=== PATIENT | female | born 1965 | race Asian ===

== ENCOUNTER 2020-12-26 12:05 | Outpatient (CLI) | payer BC, SELFPAY ==
--- NOTE | ~2020-12-26 | XR_ITS ---
EXAMINATION: XR abdomen/kub 1V EXAM DATE: 12/26/2020 12:23 INDICATION: R14.0 - Abdominal distension. Diarrhea. Dizziness. TECHNIQUE: Frontal projection of the upper abdomen, frontal projection lower abdomen/pelvis for inter pretation. There is no prior study for comparison. FINDINGS: There is moderate amount of colonic stool. No small bowel dilation, nonobstructive bowel gas pattern. There are no suspicious calcifications identified. There is no organomegaly suspecte d. There are mild bony degenerative changes. IMPRESSION: Moderate amount of colonic stool. Reviewed, dictated and finalized at location A. [employer]
== END 2020-12-26 12:06 | disposition home or self-care (01) ==
PROVIDERS: PCP Family Medicine; Visit Provider Family Medicine
DX: R14.0 Abdominal distension (gaseous) (principal)
CPT/HCPCS: 74018

== ENCOUNTER → 2021-05-18 09:39 | Outpatient (CLI) | payer BC, SELFPAY ==
--- NOTE | ~2021-05-18 | XR_ITS ---
EXAMINATION: XR knee RT 3V DATE: 05/18/2021 09:55 INDICATION: Right knee pain TECHNIQUE: Three views of the right knee were obtained. COMPARISON: None. FINDINGS: Alignment is normal. No fracture or osteochondral lesion. Joint spaces are normal with no e rosions. There is a joint effusion. Soft tissues are unremarkable. IMPRESSION: 1. Small knee joint effusion without acute osseous abnormality. Reviewed, dictated and finalized at location B.
== END ==
PROVIDERS: PCP Family Medicine; Visit Provider Family Medicine
DX: M25.561 Pain in right knee (principal); M25.461 Effusion, right knee
CPT/HCPCS: 73562

== ENCOUNTER → 2021-06-04 13:49 | Outpatient (CLI) | payer BC, SELFPAY ==
--- NOTE | ~2021-06-04 | MM_ITS ---
EXAMINATION: MM screening [facility] BI w [facility] HISTORY: Screening TECHNIQUE: Craniocaudal and mediolateral oblique 3-D tomosynthesis images were obtained and synthetic 2-D images were generated. CAD analysis was submitted and interpreted. COMPARISON: Comparison to multiple prior studies sequentially, with oldest reviewed study dated 07/29. BREAST PARENCHYMAL COMPOSITION: There are scattered areas of fibroglandular density. FINDINGS: There is no evidence of suspicious mass, calcification, or architectural distortion to sugg est malignancy in either breast. There has been no suspicious interval change. IMPRESSION: 1. No mammographic evidence of malignancy. 2. Recommend routine screening mammography in one year. BI-RADS Category 1: Negative Reviewed, dictated and finalized at location A.
--- NOTE | ~2021-06-04 | US_ITS ---
EXAMINATION: US venous doppler LE RT DATE: 06/04/2021 14:15 INDICATION: Right lower limb edema. TECHNIQUE: Grayscale ultrasound images without and with compression and Doppler ultrasound images of the right lower extremity veins were obtained. COMPARISON: None. FINDINGS: The visualized portions of right common femoral vein, profunda (deep) femoral vein, femoral vein, pop liteal vein, peroneal veins, posterior tibial veins, and greater saphenous vein outflow are patent. IMPRESSION: 1. No deep venous thrombosis. Reviewed, dictated and finalized at location A.
== END ==
PROVIDERS: PCP Family Medicine; Visit Provider Family Medicine
DX: Z12.39 Encounter for other screening for malignant neoplasm of breast (principal); M79.89 Other specified soft tissue disorders; R60.9 Edema, unspecified
CPT/HCPCS: 77063; 77067; 93971

== ENCOUNTER → 2022-08-12 12:11 | Outpatient (CLI) | payer BC, SELFPAY ==
--- NOTE | ~2022-08-12 | XR_ITS ---
EXAMINATION:XR cervical spine 4-5V DATE: 08/12/2022 12:30 INDICATION: Cervical rib with episodes of left upper extremity fatigue TECHNIQUE: AP, lateral, lateral swimmers and odontoid views of the cervical spine are provided. COMPARISON: None FINDINGS: There are 2 mm of retrolisthesis of C4 on C5. The vertebral body heights are normal. The od ontoid is intact. No fracture is identified. There is mild loss of intervertebral disc space height a t C5-6. Small degenerative osteophytes project from the anterior endplates of multiple vertebral bodi es. There is mild facet and uncovertebral joint osteoarthritis of the cervical spine. Prevertebral so ft tissues are normal. IMPRESSION: 1. Mild cervical spondylosis without acute findings. Reviewed, dictated and finalized at location A.
== END ==
PROVIDERS: PCP Plastic Surgery; Visit Provider Plastic Surgery
DX: Q76.5 Cervical rib (principal); M47.812 Spondylosis without myelopathy or radiculopathy, cervical region
CPT/HCPCS: 72050

== ENCOUNTER → 2022-09-09 15:33 | Outpatient (CLI) | payer BC, SELFPAY ==
--- NOTE | ~2022-09-09 | DEXA_ITS ---
Bone Density Report Name: IDA SANDERSON Age: 57 Sex: Female Ethnicity: Date of : 1965 Indication: osteopenia; parental hip fracture; postmenopausal Referring Provider: LEAH ROSARIO Study: Bone densitometry was performed. Exam Date: September 09, 2022 Accession number: [id number] Bone Density: Region BMD T-score Z-score Classification AP Spine (L1-L4) 0.824 -2.0 -0.7 Osteopenia Femoral Neck (Left) 0.546 -2.7 -1.5 Osteoporosis Total Hip (Left) 0.687 -2.1 -1.2 Osteopenia Femoral Neck (Right) 0.551 -2.7 -1.5 Osteoporosis Total Hip (Right) 0.681 -2.1 -1.3 Osteopenia Total Hip Mean 0.684 -2.1 -1.3 Osteopenia World Health Organization criteria for BMD impression classify patients as: Normal (T-score at or above -1.0), Osteopenia (T-score between -1.0 and -2.5), or Osteoporosis (T-score at or below -2.5). 10-year Fracture Risk: FRAX not reported because: Some T-score for Spine Total or Hip Total or Femoral Neck at or below -2.5 Previous Exams: Region Exam Age BMD T-score BMD Change BMD Change Date g/cm2 vs Baseline vs Previous AP Spine(L1-L4) 09/09/2022 57 0.824 -2.0 -0.098* -0.067* 09/11/2018 53 0.891 -1.4 -0.031* -0.031* 12/04/2015 50 0.922 -1.1 Total Hip(Left) 09/09/2022 57 0.687 -2.1 -0.044* -0.036* 09/11/2018 53 0.723 -1.8 -0.009 -0.009 12/04/2015 50 0.732 -1.7 Total Hip(Right) 09/09/2022 57 0.681 -2.1 -0.068* -0.029* 09/11/2018 53 0.710 -1.9 -0.039* -0.039* 12/04/2015 50 0.749 -1.6 *Denotes significance at 95% confidence level, LSC for AP Spine = 0.022 g/cm2, LSC for Total Hip = 0.027 g/cm2 Clinical Information Provided by Patient: Parent has had a hip fracture Patient maximum height was 62.6 Menopause Age: 49 Drinks caffeinated beverages Onset of menses at age 11 Number of children 4 Impression: The patient has osteoporosis, based on the Left Femoral Neck T-score. The patient has risk factors, including: parental hip fracture. The BMD for the AP Spine(L1-L4) decreased, changing by -0.067 since the last DXA exam. The BMD for the Total Hip(Left) decreased, changing by -0.036 since the last DXA exam. The BMD for the Total Hip(Right) decreased, changing by -0.029 since the last DXA exam. Discussion: INCREASED RISK OF FRACTURE. BONE DENSITY IS UNDESIRABLY LOW AT ONE OR MORE SKELETAL SITES, CONSISTENT WITH
--- NOTE | ~2022-09-09 | MM_ITS ---
EXAMINATION: MM screening [facility] BI w [facility] HISTORY: Screening TECHNIQUE: Craniocaudal and mediolateral oblique 3-D tomosynthesis images were obtained and synthetic 2-D images were generated. CAD analysis was submitted and interpreted. COMPARISON: Comparison to multiple prior studies sequentially, with oldest reviewed study dated 07/27. BREAST PARENCHYMAL COMPOSITION: There are scattered areas of fibroglandular density. FINDINGS: There is no evidence of suspicious mass, calcification, or architectural distortion to sugg est malignancy in either breast. There has been no suspicious interval change. IMPRESSION: 1. No mammographic evidence of malignancy. 2. Recommend routine screening mammography in one year. BI-RADS Category 1: Negative Reviewed, dictated and finalized at location A. [employer]
== END ==
PROVIDERS: PCP Family Medicine; Visit Provider Nurse Practitioner Gerontology
DX: Z12.31 Encounter for screening mammogram for malignant neoplasm of breast (principal); Z78.0 Asymptomatic menopausal state; M85.88 Other specified disorders of bone density and structure, other site; M81.0 Age-related osteoporosis without current pathological fracture; M85.852 Other specified disorders of bone density and structure, left thigh; M85.851 Other specified disorders of bone density and structure, right thigh
CPT/HCPCS: 77063; 77067; 77080

== ENCOUNTER 2022-11-26 16:45 | Outpatient (CLI) | payer BC, SELFPAY ==
[2022-11-26 17:31] LABS: Influenza A QL RT-PCR Negative (Negative); Influenza B QL RT-PCR Negative (Negative); RSV RNA, RT-PCR Negative (Negative); SARS-CoV-2 RNA PCR Negative
== END 2022-11-26 16:46 | disposition home or self-care (01) ==
LOC: ANHLAB 16:46
PROVIDERS: PCP Family Medicine; Visit Provider Nurse Practitioner Gerontology
DX: R50.9 Fever, unspecified (principal); Z20.822 Contact with and (suspected) exposure to COVID-19
CPT/HCPCS: 87637

== ENCOUNTER 2023-03-05 07:48 | Outpatient (CLI) | payer BC, SELFPAY | END 2023-03-05 07:49 | disposition home or self-care (01) | LOC: ANHAUDIO 07:49 | PROVIDERS: PCP Family Medicine; Visit Provider Nurse Practitioner Gerontology | DX: H90.3 Sensorineural hearing loss, bilateral (principal) | CPT/HCPCS: 92557; 92567 ==

== ENCOUNTER 2023-04-16 09:21 | Outpatient (CLI) | payer BC, SELFPAY ==
--- NOTE | 2023-04-16 11:00 | NEURO_ITS ---
Impression: Patient reports history of paresthesias in left hand. # Normal Nerve Conduction Study. # Normal needle/EMG. # Clinical correlation recommended. Nerve Conduction Studies Anti Sensory Summary Table Stim Site NR Peak (ms) P-T Amp (?V) Site1 Site2 Delta-P (ms) Dist (cm) Heath (m/s) Left Median Anti Sensory (2-3nd Digit) Wrist 2.6 59.2 Wrist 2-3nd Digit 2.6 14.0 54 Wrist 2.7 78.9 Wrist 2-3nd Digit 2.6 14.0 54 Right Median Anti Sensory (2-3nd Digit) Wrist 2.6 82.5 Wrist 2-3nd Digit 2.6 14.0 54 Wrist 2.7 93.6 Wrist 2-3nd Digit 2.6 14.0 54 Left Radial Anti Sensory (Base 1st Digit) Wrist 1.8 48.9 Wrist Base 1st Digit 1.8 0.0 Right Radial Anti Sensory (Base 1st Digit) Wrist 2.8 24.2 Wrist Base 1st Digit 2.8 0.0 Left Ulnar Anti Sensory (5th Digit) Wrist 2.6 40.1 Wrist 5th Digit 2.6 14.0 54 Right Ulnar Anti Sensory (5th Digit) Wrist 2.3 69.5 Wrist 5th Digit 2.3 14.0 61 Motor Summary Table Stim Site NR Onset (ms) O-P Amp (mV) Site1 Site2 Delta-0 (ms) Dist (cm) Heath (m/s) Left Median Motor (Abd Poll Brev) Wrist 2.5 7.2 Elbow Wrist 3.6 22.0 61 Elbow 6.1 4.5 Right Median Motor (Abd Poll Brev) Wrist 2.8 9.4 Elbow Wrist 3.3 19.0 58 Elbow 6.1 7.5 Left Ulnar Motor (Abd Dig Minimi) Wrist 2.1 5.5 A Elbow Wrist 4.7 27.0 57 A Elbow 6.8 5.2 B Elbow Wrist 3.1 18.0 58 B Elbow 5.2 5.3 Right Ulnar Motor (Abd Dig Minimi) Wrist 2.2 7.3 A Elbow Wrist 4.6 26.0 57 A Elbow 6.8 6.1 B Elbow Wrist 2.7 16.0 59 B Elbow 4.9 6.2 F Wave Studies NR F-Lat (ms) L-R F-Lat (ms) Left Median (Mrkrs) (Abd Poll Brev) 24.16 0.47 Right Median (Mrkrs) (Abd Poll Brev) 24.63 0.47 Left Ulnar (Mrkrs) (Abd Dig Min) 24.61 0.06 Right Ulnar (Mrkrs) (Abd Dig Min) 24.67 0.06 EMG Side Muscle Nerve Root Ins Act Fibs Amp Dur Recrt Comment Right 1stDorInt Ulnar C8-T1 Nml Nml Nml Nml Nml Right Ext Indicis Radial (Post Int) C7-8 Nml Nml Nml Nml Nml Right Ext Digitorum Radial (Post Int) C7-8 Nml Nml Nml Nml Nml Right BrachioRad Radial C5-6 Nml Nml Nml Nml Nml Right PronatorTeres Median C6-7 Nml Nml Nml Nml Nml Right Abd Poll Brev Median C8-T1 Nml Nml Nml Nml Nml Left 1stDorInt Ulnar C8-T1 Nml Nml Nml Nml Nml Left Ext Indicis Radial (Post Int) C7-8 Nml Nml Nml Nml Nml Left Ext Digitorum Radial (Post Int) C7-8 Nml Nml Nml Nml Nml Left BrachioRad Radial C5-6 Nml Nml Nml Nml Nml Left PronatorTeres Median C6-7 Nml Nml Nml Nml Nml Left Abd Poll Brev Median C8-T1 Nml Nml Nml Nml Nml MTDD
== END 2023-04-16 09:22 | disposition home or self-care (01) ==
PROVIDERS: PCP Family Medicine; Visit Provider Orthopaedic Surgery Hand Surgery
DX: M25.531 Pain in right wrist (principal); M25.532 Pain in left wrist; G56.00 Carpal tunnel syndrome, unspecified upper limb
CPT/HCPCS: 95886; 95911

== ENCOUNTER 2023-07-16 13:30 | Outpatient (RCR) | payer BC, SELFPAY ==
[2023-06-17 08:30] VITALS: BMI 24.5
[2023-06-17 08:35] VITALS: BMI 24.5
[2023-07-16 14:32] VITALS: BMI 24.5
== END 2023-07-16 14:47 | disposition home or self-care (01) ==
LOC: ANHDMC 13:30
PROVIDERS: PCP Family Medicine; Visit Provider Family Medicine
DX: R73.03 Prediabetes (principal); E78.00 Pure hypercholesterolemia, unspecified; Z71.3 Dietary counseling and surveillance
CPT/HCPCS: 97802; 97803

== ENCOUNTER 2025-05-12 08:46 | Outpatient (CLI) | payer BC, SELFPAY ==
--- NOTE | ~2025-05-12 | DEXA_ITS ---
Bone Density Report Name: IDA SANDERSON Age: 60 Sex: Female Ethnicity: Date of : 1965 Indication: osteopenia; monitoring treatment; Referring Provider: Cordell Jung Study: Bone densitometry was performed. Exam Date: May 12, 2025 Accession number: [id number] Bone Density: Region BMD T-score Z-score Classification AP Spine(L1-L4) 0.870 -1.6 -0.1 Osteopenia Femoral Neck (Left) 0.576 -2.5 -1.1 Osteoporosis Total Hip (Left) 0.713 -1.9 -0.9 Osteopenia Femoral Neck (Right) 0.562 -2.6 -1.3 Osteoporosis Total Hip (Right) 0.711 -1.9 -0.9 Osteopenia Total Hip Mean 0.712 -1.9 -0.9 Osteopenia World Health Organization criteria for BMD impression classify patients as: Normal (T-score at or above -1.0), Osteopenia (T-score between -1.0 and -2.5), or Osteoporosis (T-score at or below -2.5). 10-year Fracture Risk: FRAX not reported because: Some T-score for Spine Total or Hip Total or Femoral Neck at or below -2.5 Treated for osteoporosis Previous Exams: -- Region Exam Age BMD T-score BMD Change BMD Change Date g/cm2 vs Baseline vs Previous -- AP Spine (L1-L4) 05/12/2025 60 0.870 -1.6 -5.6%* 5.7%* 09/09/2022 57 0.824 -2.0 -10.6%* -7.5%* 09/11/2018 53 0.891 -1.4 -3.4%* -3.4%* 12/04/2015 50 0.922 -1.1 Total Hip(Left) 05/12/2025 60 0.713 -1.9 -2.6% 3.7% 09/09/2022 57 0.687 -2.1 -6.1%* -4.9%* 09/11/2018 53 0.723 -1.8 -1.2% -1.2% 12/04/2015 50 0.732 -1.7 Total Hip(Right) 05/12/2025 60 0.711 -1.9 -5.0%* 4.5%* 09/09/2022 57 0.681 -2.1 -9.1%* -4.1%* 09/11/2018 53 0.710 -1.9 -5.2%* -5.2%* 12/04/2015 50 0.749 -1.6 -- *Denotes significance at 95% confidence level, LSC for AP Spine = 0.022 g/cm2, LSC for Total Hip = 0.027 g/cm2 Clinical Information Provided by Patient: Is being treated for osteoporosis Has used the following medications: Actonel (i.e. risedronate), Vitamin D Patient maximum height was 62.5 Menopause Age: 49 Drinks caffeinated beverages Onset of menses at age 11 Number of children 4 Impression: The patient has osteoporosis, based on the Right Femoral Neck T-score. No significant bone loss was observed. Discussion: PATIENT UNDER TREATMENT WITH NO SIGNIFICANT BMD LOSS SINCE LAST EXAM. In an untreated patient, BMD typically declines with age. A lack of decline or gain is usually a sign that treatment is efficacious and fracture risk is reduced. It is important to ask patients whether they are taking their medications and to encourage continued and appropriate compliance with their osteoporosis therapies to reduce fracture risk. It is also important to review their risk factors and encourage appropriate calcium and vitamin D intakes, exercise, fall prevention and other lifestyle measures. Follow-Up: Consider a repeat BMD and Vertebral Fracture Assessment (VFA) exam in 2 years or sooner if medically necessary, to reassess this patient's status. Reported by: ARIES on 05/12/2025 9:34:00 AM. Reviewed, dictated and finalized at location A.
== END 2025-05-12 08:47 | disposition home or self-care (01) ==
LOC: MICIMG 08:47
PROVIDERS: PCP Family Medicine; Visit Provider Family Medicine
DX: Z78.0 Asymptomatic menopausal state (principal); M81.0 Age-related osteoporosis without current pathological fracture; M85.89 Other specified disorders of bone density and structure, multiple sites
CPT/HCPCS: 77080

== ENCOUNTER 2025-05-23 09:18 | Outpatient (CLI) | payer BC, SELFPAY ==
--- OUTSIDE RECORDS SUMMARY | 2025-05-23 09:41 | XMS_ITS | Data Portability ---
Author Organization [place] [employer] [facility], Main Office Address [address] [place] [address] Care Team Providers Care Tram Driver Name Role Phone HUGH DHLILON Primary Care Provider HUGH DHILLON Referring Provider Assessment Encounter Date Assessment Date Assessment LastModified by Organization Details LastModified Time 03/11/2023 03/11/2023 57-year-old female with symptoms consistent of carpal and cubital tunnel syndrome. we will obtain an EMG nerve conduction study to further evaluate the extent of her nerve compression. We discussed possible treatment options including bracing and oral steroids. Patient was agreeable this plan and was provided with and fitted for bilateral carpal tunnel braces. Patient was prescribed Medrol Dosepak to help with inflammation at her wrist and possible inflammation at her elbows. She will follow-up after the EMG study to discuss the results. [email or web address] Not available 03/11/2023 12:44:54 04/07/2025 04/07/2025 This note is dictated and transcribed by [employer]. Staff Consultant variances may occur. Despite proofreading, typographical errors may occur. Occasional wrong-word or 'vnilr-f-gxvz' substitutions may have occurred due to the inherent limitations of voice recording. Read the chart carefully and recognize, using context, where substitutions have occurred. [email or web address] Not available 04/07/2025 15:15:50 05/05/2025 05/05/2025 This note is dictated and transcribed by [employer]. Staff Consultant variances may occur. Despite proofreading, typographical errors may occur. Occasional wrong-word or 'yjrnv-a-sbft' substitutions may have occurred due to the inherent limitations of voice recording. Read the chart carefully and recognize, using context, where substitutions have occurred. [email or web address] Not available 05/05/2025 14:13:10 Plan of Treatment Reminders Order Date Submit Date Provider Last Modified By Organization Details Last Modified Time Details Appointments New Patient 15 2024 01:00P David Chang DPM Not available Not available Not available Lab None recorded. Referral None recorded. Procedures None recorded. Surgeries None recorded. Imaging XR, foot, 3 or more view 2024 025 [email or web address] [facility] [place], [address], [place], [address], 04/07/2025 15:18:52 electromy ogram + nerve conductio n study - R/O CTS, PLEASE CALL PATIENT TO SCHEDULE 2022 023 [facility] (Cardiology & Emg), [address], [place], [address], 03/11/2023 17:25:14 XR, wrist 2022 023 [email or web address] [facility] [place], [address], [place], [address], 03/11/2023 12:44:30 Medication Orders diclofena c sodium 75 mg tablet,de layed release 2024 025 [facility]/Pharmacy #[id number], [address] , [place], [address], 05/05/2025 14:13:00 Medrol (Sabas) 4 mg tablets in a dose pack 2022 023 [facility]/Pharmacy #[id number], [address], [place], [address], 04/07/2025 15:21:03 Patient TargetsNo targets recorded. Patient Instructions Encounter Date Encounter Id Patient Instructions Last Modified By Organization Details Last Modified Time 04/07/2025 [id number] achilles tendonitis education [email or web address] Not available 04/07/2025 15:19:37 achilles tendon: exercises [email or web address] Not available 04/07/2025 15:19:37 learning about rice (rest, ice, compression, and elevation) [email or web address] Not available 04/07/2025 15:18:50 Reason for Referral None Reported. Results Created Date Observation Date Name Description Value Unit Range Abnormal Flag Note LastModifiedBy Organization Detail LastModifiedTime 09/03/20 22 XR, wrist No observ ation record ed. [id number] [facility] [place] [address], [place], [address], 12/26/2022 01:49:49 03/11/20 23 XR, wrist No observ ation record ed. [email or web address] [facility] [place] [address], [place], [address], 03/27/2023 11:40:44 04/22/20 23 04/16/2023 elect romyo gram + nerve condu ction study No observ ation record ed. [email or web address] Not Available 2022 09:59:55 04/07/20 25 XR, foot, 3 or more view No observ ation record ed. [email or web address] [facility] [place] [address], [place], [address], 04/07/2025 15:18:51 Result Notes None recorded. Problems Name Problem SNOMED Code Status Onset Date Resolution Date Notes Provider Name and Address Organization Details Recorded Time Pain of left wrist 0057486612556 02 Active 2021 Not Available [facility] 3 01:48:40 Pain of right wrist 2573087241469 00 Active 2022 Gifty Ragland ATC L null, [facility] 3 11:27:52 Ganglion cyst of left wrist 7107856233357 00 Active 2022 Gifty Ragland ATC L null, [facility] 3 11:28:26 Bilateral wrist pain 7520388996456 9105 Active 2022 Tanisha Nilesh page, [facility] 3 12:15:45 Bilateral carpal tunnel syndrome 1654464441420 9101 Active 2022 MARIANGEL Amaro [address], [place], [address] , [facility] 3 12:41:21 Osteoarthr itis of joint of bilateral hands 7063205814096 09 Active 2022 Hoang Feldman MD [address], [address], [place], [address] , [facility] 3 09:59:49 Pain of left heel 3800332369072 109 Active 2024 Willie Chang DPM [address], [address], [place], [address] , [facility] 5 15:15:59 Left Achilles tendinitis 2720090397927 02 Active 2024 Willie Chang DPM [address], [address], [place], [address] , [facility] 5 15:17:16 Calcaneal spur of left foot 6404619233298 09 Active 2024 Willie Chang DPM [address], [address], [place], [address] , [facility] 5 15:17:29 Achilles tendinitis 31250297 Active 2024 Willie Chang DPM [address], [address], [place], [address] , [facility] 5 15:19:14 Seasonal allergy 182249397 Active 2024 Rosa page, [facility] 5 15:21:40 Arthritis 1412876 Active 2024 Rosa page, [facility] 5 15:21:49 Prediabete s 365757909 Active 2024 Rosa Bairdd camilo [facility] 5 15:22:02 Kidney stone 86676260 Active 2024 oRsa Bairdd camilo [facility] 5 15:22:12 Notes:OSTEOPORSIS Problem Notes None recorded. Procedures Surgical History Date Name Laterality Status Provider Name and Address Organization Details Recorded Time Knee completed Not Available [facility] 11/2022 01:47:46 Imaging Results None recorded. Procedure Notes None recorded. Medical Equipment None Reported. Allergies Allergen ID Allergen Name Allergen Category Reaction Reaction Severity Criticality Documentation Date Start Date Code Code System Note Provider Name and Address Organization Details Recorded Time 85696 Substance with sulfonami de structure and antibacte rial mechanism of action (substanc e) medicatio n Not available Not available Not available 12/26/2022 24006 8003 SNOMED Not Available [facility] 3 01:49:42 18152 Product containin g penicilli n (product) medicatio n Not available Not available Not available 12/26/2022 50600 8001 SNOMED Not Available [facility] 3 01:49:42 Medications Name Sig Start Date Stop Date Status Note LastModified by Organization Details LastModified Time prednisone 10 mg tablet TAKE 4 TABS BY MOUTH DAILY X3 DAYS, 3 TABS DAILY X3 DAYS, 2 TABS DAILY X3 DAYS, 1 TAB DAILY X3 DAYS 04/07 completed Not Available Not Available Not Available azithromyci n 250 mg tablet TAKE 2 TABLETS BY MOUTH TODAY, THEN TAKE 1 TABLET DAILY FOR 4 DAYS DIRECTED 04/07 completed Not Available Not Available Not Available prednisone 20 mg tablet TAKE 2 TABS BY MOUTH FOR 4 DAYS THEN DECREASE TO 1 TAB BY MOUTH FOR 4 DAYS 04/07 completed Not Available Not Available Not Available alendronate 70 mg tablet TAKE 1 TABLET BY MOUTH ONE TIME PER WEEK active Not Available Not Available No t Available triamcinolo ne acetonide 0.1 % topical cream APPLY TOPICALLY 3 TIMES A DAY 04/07 completed Not Available Not Available Not Available Kenalog 10 mg/mL suspension for injection In office injection administe red by the provider 04/07 completed [facility]: 0003- 0494- 20 Not Available Not Available Not Available benzonatate 100 mg capsule TAKE 1 TO 2 CAPSULES BY MOUTH THREE TIMES A DAY NEEDED FOR COUGH MAX 600 MG/DAY 04/07 completed Not Available Not Available Not Available cephalexin 500 mg capsule TAKE 1 CAPSULE BY MOUTH EVERY 8 HOURS FOR 10 DAYS 04/07 completed Not Available Not Available Not Available diclofenac sodium 75 mg tablet,chintan yed release TAKE 1 TABLET BY MOUTH TWICE A DAY NEEDED FOR 7 DAYS active Not Available Not Available No t Available hydroxyzine HCl 25 mg tablet TAKE 1 TABLET BY MOUTH THREE TIMES A DAY NEEDED FOR ITCHING 04/07 completed Not Available Not Available Not Available mupirocin 2 % topical ointment TAKE 1 TOPICAL GRAM 4 TIMES A DAY 04/07 completed Not Available Not Available Not Available methylpredn isolone 4 mg tablets in a dose pack TAKE 6 TABLETS ON DAY 1 DIRECTED ON PACKAGE AND DECREASE BY 1 TAB EACH DAY FOR A TOTAL OF 6 DAYS 04/07 completed Not Available Not Available Not Available ropivacaine (PF) 5 mg/mL (0.5 %) injection solution Take 1 mg by injection route. 04/07 completed Not Available Not Available Not Available Vitals Date Recorded Body height Body mass index (BMI) Body weight Provider Name and Address Organization Details Last Updated DateTime 03/11/2023 157.48 cm 25.1 kg/m2 35963.15 g NEELA Avila [facility] 03/11/2023 11:27:22 Date Recorded Body height Body mass index (BMI) Body weight Heart rate Respiratory rate Oxygen saturation Oxygen saturation in Arterial blood by Pulse oximetry Systolic And Diastolic Provider Name and Address Organization Details Last Updated DateTime 157.48 cm 25.1 kg/m2 69585.1 5 g 66 /min 14 /min 99 % 99 % 152/96 mm[Hg] Diana Sam [facility] 14:51:24 Date Recorded Body height Body mass index (BMI) Body weight Pain severity - 0-10 verbal numeric rating [Score] - Reported Provider Name and Address Organization Details Last Updated DateTime 04/22/2023 157.48 cm 25.1 kg/m2 60719.15 g 8 Ally MCKENNA Ferrari [facility] 04/22/2023 09:13:02 Date Recorded Body height Body mass index (BMI) Body weight Heart rate Respiratory rate Oxygen saturation Oxygen saturation in Arterial blood by Pulse oximetry Systolic And Diastolic Provider Name and Address Organization Details Last Updated DateTime 157.48 cm 25.1 kg/m2 26786.1 5 g 73 /min 14 /min 99 % 99 % 143/86 mm[Hg] Diana Flaco [facility] 14:04:15 Date Recorded Body mass index (BMI) Body height Body weight Provider Name and Address Organization Details Last Updated DateTime 09/03/2022 23.8 kg/m2 157.48 cm 54132.01 g Not Available [facility] 12/26/2022 01:48:02 Social History None recorded. Functional Status Question Answer Note LastModified by Organizat ion Details LastModified Time What is your level of alcohol consumption? Occasional [id number] Information not available 12/26/2022 Mental Status None recorded. Family History Relationship Description Onset Age of this Age Resolved Age Notes LastModified by Organization Details LastModified Time Father Heart disease [id number] Not available 12/26/2022 01:47:47 Father Family history of stroke [id number].127 [id number] Not available 12/26/2022 01:47:47 Sister Hypertensive disorder Not available 2024 15:23:53 Mother Heart disease [id number].029 [id number] Not available 12/26/2022 01:47:47 Mother Family history of stroke MIGRATION.556 [id number] Not available 12/26/2022 01:47:47 Mother Hypertensive disorder MIGRATION.722 [id number] Not available 12/26/2022 01:47:47 Mother Diabetes mellitus [id number] Not available 12/26/2022 01:47:47 Brother Diabetes mellitus MIGRATION.027 [id number] Not available 12/26/2022 01:47:47 Sister Diabetes mellitus MIGRATION.593 [id number] Not available 12/26/2022 01:47:47 Unspecified Relation Diabetes mellitus ALL OF MOTHER S SIDE Not available 04/07/2025 15:23:16 Mother Cerebrovascu lar accident Not available 09/2025 15:23:30 Mother Arthritis Not available 04/07/2025 15:23:40 Mother Osteoporosis Not availa ble 04/07/2025 15:24:14 Mother Blood coagulation disorder Not available 2024 15:24:33 Father Cerebrovascu lar accident Not available 09/2025 15:23:30 Medical History Condition Response BLINDNESS N KIDNEY STONES N MRSA N CARPAL TUNNEL SYNDROME N LUNG DISEASE/DISORDER N HISTORY OF DRUG ABUSE N RADIATION / CHEMOTHERAPY N COPD N SPORTS INJURY N ANKLE PAIN N BLOOD DISEASES N SCHIZOPHRENIA N SHINGLES N SHOULDER PAIN N DEPRESSION (INCLUDING POST ) N BOWEL PROBLEMS N STROKE/TIA N ULCERS N KNEE PAIN N BENIGN PROSTATIC HYPERPLASIA N OBESITY N GERD/NAUSEA N ANEURYSM N URINARY/BLADDER/KIDNEY PROBLEMS N CORONARY ARTERY DISEASE (CAD) N ADDICTION CONCERNS N USE OF BLOOD THINNERS N SKIN PROBLEMS N EMPHYSEMA N MUSCLE,JOINT OR BONE PROBLEMS N DVT N STOMACH ULCERS N BLOOD CLOTS N USE OF NSAIDS N CONCUSSION OR SPINAL TRAUMA N NEUROPATHY N AIDS/HIV N FRACTURES N HYPERTENSION N ELBOW PAIN N TOURETTE'S N Metal allergy N ANXIETY DISORDER N BLOOD TRANSFUSION N ANEMIA/BLOOD DISORDER N BIPOLAR DISORDER N BRONCHITIS N OSTEOARTHRITIS N TUBERCULOSIS N FOOT PROBLEM N HEART VALVE DISORDERS N ALLERGIES/HAYFEVER Y SOFT TISSUE INJURY N INFECTIOUS DISEASE N HEART ARRHYTHMIA N INSOMNIA N HIGH CHOLESTEROL / HYPERLIPIDEMIA N RHEUMATOID ARTHRITIS N EDEMA N CHRONIC PAIN SYNDROME N CAROTID BLOCKAGE N BACK / NECK PROBLEMS N HAVE YOU BEEN HOSPITALIZED OR SEEN IN [facility] IN THE PAST YEAR ? N BURSITIS N HERNIATED DISC N DIALYSIS N FIBROMYALGIA N OSTEOPOROSIS Y ARTHRITIS Y NO SIGNIFICANT PAST MEDICAL HISTORY N PERIPHERAL NEUROPATHY N DIABETES, TYPE Y HEARTBURN / REFLUX N HEPATITIS / LIVER DISEASE N GOUT N ALZHEIMER'S DISEASE N SLEEP DISORDER N HERPES N HEADACHES/MIGRAINES N SEIZURES/EPILEPSY N VASCULAR DISEASE N Blood Disorder N HIP PAIN N DIZZINESS N HEAD TRAUMA OR INJURY N HEART DISEASE/HEART PROBLEMS N KIDNEY DISEASE Y MULTIPLE SCLEROSIS N CANCER: SPECIFY N CARDIAC ARRHYTHMIA N ANESTHESIA COMPLICATIONS N ATRIAL FIBRILLATION N AUTOIMMUNE DISEASE N Gynecological HistoryNo gynecological history recorded. Obstetrics History GPAL:G 0 P 0 0 0 0 Past Encounters Encounter ID Performer Location Encounter Start Date Encounter Closed Date Diagnosis/Indication Diagnosis SNOMED-CT Code Diagnosis ICD10 Code Diagnosis Note [id number] Hoang Feldman MD [facility] [place] [address] [place] [address] 09/03/2022 00:00:00 09/03/2022 10:57:19 [id number] Hoang Feldman MD [facility] [place] [address] [place] [address] 03/11/2023 11:23:33 03/11/2023 12:23:26 Pain of right wrist 7301021001 10321 M25.531 Pain of left wrist 76884 14069 08814 M25.532 Ganglion c yst of left wrist 0354108421 24146 M67.432 Bilateral wrist pain 518 6189056 9060824 M25.531 M25.532 [id number] Hoang Feldman MD [facility] [place] [address] [place] [address] 04/22/2023 09:04:02 04/22/2023 10:27:31 Osteoarthritis of joint of bilateral hands 0978365336 21062 M19.042 patient has some mild osteoarthr itis pain associated with it has some positional nerve irritation she can use her braces at night watch her elbow position avoiding prolonged flexion if worsening of symptoms despite conservati ve treatment be happy to see her back again but otherwise for the mild arthritis just the bracing for heavy activity occasional anti-infla mmatory with appropriat e precaution s. [id number] Willie Chang DPM [facility] [place] [address] [place] [address] 04/07/2025 14:37:38 04/11/2025 11:45:42 Pain of left heel 2674084126 218465 M79.672 x-rays reviewed with the patientRic e therapyStr etching and icing instructio ns reviewedRe commend topical Voltaren gel to the areaNo hard backing shoesRecom mend supportive shoe gearNo strenuous activities Follow-up in 5-6 weeks Left Achil les tendinitis 8914575709 60507 M76.62 as above Calcaneal spur of left foot 2191676303 99151 M77.32 as above [id number] Willie Chang DPM [facility] [place] [address] [place], [place] [address] 05/05/2025 13:59:02 05/06/2025 08:32:04 Pain of left heel 0156597565 461029 M79.672 x-rays reviewed with the patientRic e therapyStr etching and icing instructio ns reviewedRe commend topical Voltaren gel to the areaNo hard backing shoesRecom mend supportive shoe gearNo strenuous activities Follow-up in 8 weeks Left Achil les tendinitis 0054759067 52528 M76.62 as above Health Concerns Section Related Observation LastModified by Organization Detai ls LastModified Time None Recorded Concern Status LastModified by Organization Details LastModified Time None Recorded Advance Directives Directive None Recorded Payers Insurance Date Sequence Insurance Name Policy Number Policy Valle Covered Member ID Valle Member ID Guarantor Name 05/02/2025 1 [place] [id number] Osiel Bright [id number] Ree Bright OBGyn Episode No OBEpisode recorded.
--- OUTSIDE RECORDS SUMMARY | 2025-05-23 09:41 | XMS_ITS | Clinical Summary ---
Author Organization [facility] Address [address], [address] [address] Phone Care Team Providers Care Equity Research Associate Name Role Phone Rosa Leonard MD Unavailable Medications polyethylene glycol (MIRALAX) Powder Use entire 255g bottle with 64oz of clear liquid as directed for colonoscopy prep. 255 g 0 6 Active Social History Tobacco Use Types Packs/Day Years Used Date Smoking Tobacco: Never Assessed Comments Unknown Sex and Gender Information Value Date Recorded Sex Assigned at Not on file Legal Sex Female 9:18 PM CDT Gender Identity Not on file Sexual Orientation Not on file Plan of Treatment Health Maintenance Due Date Last Done Comments Hepatitis C Virus (HCV) Screening 1964 TdaP Immunization 1964 Pap Smear 1985 Cervical Cancer Screening (CCS) 1994 HPV/Cotest 1994 Cologuard 2009 Colonoscopy 2009 Colorectal Cancer Screening 2009 Immunochemical Fecal Occult Blood 2009 Pneumococcal Immunization (5 0+ years) (1 of 1 - PCV) 2014 Zoster Immunization (1 of 2) 2014 SARS-COV-2 Immunization ( - 2023-25 season) 2024 Influenza Immunization (#1) 2025 Respiratory Syncytial Virus (RSV) Immunization (Adult) (1 - 1-dose 75+ series) 2039 Hepatitis B Immunization Aged Out No longer eligible based on patient's age to complete this topic Human Papillomavirus (HPV) Immunization Aged Out No longer eligible b ased on patient's age to complete this topic Meningococcal Immunization (ACWY) Aged Out No longer eligible based on patient's age to complete this topic Rotavirus Immunization Aged Out No lo nger eligible based on patient's age to complete this topic [place] [address] [place] [address] Care Teams Equity Research Associate Relationship Specialty Start Date End Date Rosa Leonard MD [address] [address] Obstetrics & Gynecology 08/22/16
[2025-05-23 10:15] LABS: Iron 147 ug/dL (37-170)
[2025-05-23 10:17] LABS: Magnesium 2.2 mg/dL (1.6-2.3)
[2025-05-23 10:28] LABS: Percent Iron Saturation 50 % (20-50)
[2025-05-23 10:56] LABS: Ferritin 160.00 ng/mL (11.1-264)
== END 2025-05-23 09:19 | disposition home or self-care (01) ==
LOC: ANHLAB 09:20
PROVIDERS: PCP Family Medicine; Visit Provider Physician Assistant
DX: R53.83 Other fatigue (principal)
CPT/HCPCS: 36415; 82306; 82728; 83540; 83550; 83735; 84630

== ENCOUNTER 2025-07-11 08:26 | Outpatient (CLI) | payer BC, SELFPAY ==
--- NOTE | ~2025-07-11 | US_ITS ---
EXAMINATION: US right upper quadrant DATE: 07/11/2025 09:01 INDICATION: Abnormal liver function tests. TECHNIQUE: Multiple grayscale and Doppler ultrasound images of the abdomen were obtained. COMPARISON: Ultrasound abdomen 02/08/2019 FINDINGS: Abdominal aorta is normal in caliber. The visualized portions of the head and body of the pancreas are normal. The liver is normal without focal lesion. There is normal flow in main portal vein. The gallbladder is normal in size. No gallstones or gallbladder wall thickening. There was no sonographic Baker's sign. The common duct is normal and measures 4 mm. There are cysts in right kidney measuring up to 2.1 cm. IMPRESSION: 1. No etiology for abnormal liver function tests. Reviewed, dictated and finalized at location E.
== END 2025-07-11 08:27 | disposition home or self-care (01) ==
LOC: MICIMG 08:27
PROVIDERS: PCP Internal Medicine Endocrinology, Diabetes & Metabolism; Visit Provider Internal Medicine Endocrinology, Diabetes & Metabolism
DX: R74.8 Abnormal levels of other serum enzymes (principal)
CPT/HCPCS: 76705

== ENCOUNTER 2025-10-04 09:53 | Outpatient (CLI) | payer BC, SELFPAY ==
--- NOTE | ~2025-10-04 | MM_ITS ---
EXAMINATION: MM screening genesis BI w evangelina HISTORY: Screening. TECHNIQUE: Craniocaudal and mediolateral oblique 3-D tomosynthesis images were obtained and synthetic 2-D images were generated. CAD analysis was submitted and interpreted. COMPARISON: 2021, 2020, and 2019. BREAST PARENCHYMAL COMPOSITION: Dense: The breasts are heterogeneously dense FINDINGS: No suspicious masses are seen. There are no suspicious calcifications. No unexplained architectural distortion is seen. There are no skin or nipple abnormalities identified. There is no adenopathy seen on the images submitted. IMPRESSION: No mammographic evidence to suggest malignancy is seen. The patient may return to screening mammography as per ACR guidelines. BI-RADS 1 - Negative. Reviewed, dictated and finalized at location C. NOCHEMIST
== END 2025-10-04 09:54 | disposition home or self-care (01) ==
LOC: MICIMG 09:54
PROVIDERS: PCP Internal Medicine Endocrinology, Diabetes & Metabolism; Visit Provider Family Medicine
DX: Z12.31 Encounter for screening mammogram for malignant neoplasm of breast (principal)
CPT/HCPCS: 77063; 77067